=== PATIENT | male | born 1965 | race Caucasian/White ===

== ENCOUNTER 2023-10-08 07:45 | Day surgery (SDC) | payer OTHER ==
[~2023-10-08] VITALS: Ht 170.2 cm; Wt 81.6 kg
[2023-10-08] MEDS ORDERED: fentaNYL citrate 0.05 MG/ML VIAL ONE (08:41)
[2023-10-08] MEDS: fentaNYL citrate 0.05 MG/ML VIAL IVP ONE (09:02)
[2023-10-08] MEDS: LIDOCAINE 2% 100 MG/5 ML UJET TP ONE (09:14)
[2023-10-08] MEDS ORDERED: LABETALOL 20 MG/4 ML VIAL IVP ONE (09:27)
[2023-10-08] MEDS: LABETALOL 20 MG/4 ML VIAL IVP ONE (09:33)
== END 2023-10-08 10:30 | disposition home or self-care (01) ==
LOC: MDS 07:45 → MMU 07:45 → MDS 10:30
PROVIDERS: ATTEND Internal Medicine Gastroenterology
DX: Z12.11 Encounter for screening for malignant neoplasm of colon (principal); K63.5 Polyp of colon; E78.5 Hyperlipidemia, unspecified
CPT/HCPCS: 45385; J3010; J3490